=== PATIENT | female | born 1970 | race Caucasian/White ===

== ENCOUNTER 2016-11-22 09:19 | Emergency (ER) | payer BC ==
[2016-11-22 09:35] VITALS: BP 92/56
--- NOTE | 2016-12-05 09:26 | UC ---
Obdulio Stewart Angela, scribed for Pat Alvarez MD on 11/22/16 at 1008 . General HPI - HPI Summary HPI Summary: This pt is a 46 y/o female presenting to [facility] c/o sore throat x3 days. Pt additionally c/o head congestion since last night. She notes swallowing is painful. Pt denies cough, long travel distance, fever, rash. She has not had a flu shot this year yet. Pt states she is not prone to yeast infections. She is allergic to glucosamine. - History of Current Complaint Chief Complaint: UCGeneralIllness Stated Complaint: SORE THROAT Time Seen by Provider: 11/22/16 09:43 Hx Obtained From: Patient Hx Last Menstrual Period: 11/15/16 Onset/Duration: Lasting Days Associated Signs & Symptoms: Negative: Cough, Fever - Allergy/Home Medications Allergies/Adverse Reactions: Allergies Allergy/AdvReac Type Severity Reaction Status Date / Time Glucosamine AdvReac Severe Nausea And Verified 11/22/16 09:32 Vomiting PMH/Surg Hx/FS Hx/Imm Hx Other Endocrine History: DENIES: diabetes Other Cardiovascular History: DENIES: HTN - Surgical History Surgical History: Yes Surgery Procedure, Year, and Place: Left Shoulder - Family History Known Family History: Positive: Hypertension, Diabetes - mother, Other - Mother : breast CA. Father: bone CA - Social History Alcohol Use: Occasionally Alcohol Amount: 2XWEEK Substance Use Type: None Smoking Status (MU): Never Smoked Tobacco Have You Smoked in the Last Year: No Review of Systems Constitutional: Negative Skin: Negative Eyes: Negative ENT: Sore Throat, Sinus Congestion, Other - head congestion Respiratory: Negative Cardiovascular: Negative Gastrointestinal: Negative Genitourinary: Negative Motor: Negative Neurovascular: Negative Musculoskeletal: Negative Is Patient Immunocompromised?: No All Other Systems Reviewed And Are Negative: Yes Physical Exam Triage Information Reviewed: Yes Appearance: Well-Nourished Vital Signs: Initial Vital Signs Temp 97.8 F 11/22/16 09:32 Pulse 69 11/22/16 09:32 Resp 16 11/22/16 09:32 BP 92/56 11/22/16 09:32 Pulse Ox 100 11/22/16 09:32 Vital Signs Reviewed: Yes Eye Exam: Normal ENT: Positive: Nasal congestion - left nostril more inflamed than the right., Other: - Posterior pharynx is erythematous. Uvula is midline. No airway obstruction. There are no sores appreciated. There is redness on soft palate. Respiratory Exam: Normal Respiratory: Positive: Chest non-tender, Lungs clear, Normal breath sounds, No respiratory distress, No accessory muscle use Cardiovascular Exam: Normal Cardiovascular: Positive: RRR, No Murmur, Pulses Normal, Brisk Capillary Refill Abdominal Exam: Normal Abdomen Description: Positive: Nontender, No Organomegaly, Soft Bowel Sounds: Positive: Present Musculoskeletal Exam: Normal Musculoskeletal: Positive: Strength Intact Neurological Exam: Normal - nonfocal, grossly intact Psychological Exam: Normal - conversing easily and appropriately Skin Exam: Normal - no visible or reported rash Course/Dx - Course Course Of Treatment: Rapid strep test is negative for strep throat. Reviewed results, coa, tx pain with pt. Pt declines a work note. Questions as posed answered to the best of my ability. - Differential Dx - Multi-Symptom Provider Diagnoses: uri, sinusitis Discharge - Discharge Plan Condition: Stable Disposition: HOME Prescriptions: Azithromyxin XIANG (NF) [Z-Xiang (Zithromax) 250 mg tabs #6] 2 tab PO .TODAY, THEN 1 DAILY #6 tab Patient Education Materials: Sinusitis (ED) Referrals: Raymon PRUETT,Doc Baltazar [Primary Care Provider] - The documentation as recorded by the Obdulio maloney Angela accurately reflects the service I personally performed and the decisions made by me, Pat Alvarez MD.
== END 2016-11-22 10:35 | disposition home or self-care (01) ==
LOC: UCEAST 09:19
DX: J06.9 Acute upper respiratory infection, unspecified (principal); J32.9 Chronic sinusitis, unspecified; Z88.8 Allergy status to other drugs, medicaments and biological substances
CPT/HCPCS: 87651; 99212; G0463

== ENCOUNTER 2017-03-26 07:51 | Emergency (ER) | payer BC ==
[2017-03-26 08:00] VITALS: BP 121/69
--- NOTE | 2017-03-26 08:28 | UC ---
Head Injury HPI - History Of Current Complaint Chief Complaint: UCHeadache Stated Complaint: HEADACHE NECK PAIN NAUSEA DIZZY Time Seen by Provider: 03/26/17 08:26 Hx Last Menstrual Period: 02/21/17 - Allergies/Home Medications Allergies/Adverse Reactions: Allergies Allergy/AdvReac Type Severity Reaction Status Date / Time Glucosamine AdvReac Severe Nausea And Verified 03/26/17 07:56 Vomiting PMH/Surg Hx/FS Hx/Imm Hx - Surgical History Surgical History: Yes Surgery Procedure, Year, and Place: Left Shoulder - Family History Known Family History: Positive: Hypertension, Diabetes - mother, Other - Mother : breast CA. Father: bone CA - Social History Alcohol Use: Occasionally Alcohol Amount: 2XWEEK Substance Use Type: None Smoking Status (MU): Never Smoked Tobacco Have You Smoked in the Last Year: No Physical Exam Vital Signs: Initial Vital Signs Temp 98 F 03/26/17 07:56 Pulse 76 03/26/17 07:56 Resp 15 03/26/17 07:56 BP 121/69 03/26/17 07:56 Pulse Ox 100 03/26/17 07:56 Discharge - Discharge Plan Referrals: Raymon PRUETT,Doc Baltazar [Primary Care Provider] -
--- NOTE | 2017-03-26 08:42 | UC ---
UC General HPI - HPI Summary HPI Summary: 5 days of head and body aches feels congested like she is getting a cold historically she does not run fevers and she did not get a flu vaccine this year - History of Current Complaint Chief Complaint: UCHeadache Stated Complaint: HEADACHE NECK PAIN NAUSEA DIZZY Time Seen by Provider: 03/26/17 08:26 Hx Obtained From: Patient Hx Last Menstrual Period: 02/21/17 Onset/Duration: Sudden Onset, Lasting Days - 5, Still Present Timing: Constant Onset Severity: Moderate Current Severity: Moderate Pain Location at: body and right side of neck Character: aching - Allergy/Home Medications Allergies/Adverse Reactions: Allergies Allergy/AdvReac Type Severity Reaction Status Date / Time Glucosamine AdvReac Severe Nausea And Verified 03/26/17 07:56 Vomiting PMH/Surg Hx/FS Hx/Imm Hx Previously Healthy: No Psychological History: Depression - Surgical History Surgical History: Yes Surgery Procedure, Year, and Place: Left Shoulder - Family History Known Family History: Positive: Hypertension, Diabetes - mother, Other - Mother : breast CA. Father: bone CA - Social History Occupation: Employed Full-time Lives: With Family Alcohol Use: Occasionally Alcohol Amount: 2XWEEK Substance Use Type: None Smoking Status (MU): Never Smoked Tobacco Have You Smoked in the Last Year: No Review of Systems Constitutional: Fatigue Skin: Negative Eyes: Negative ENT: Negative Respiratory: Negative Cardiovascular: Negative Gastrointestinal: Negative Genitourinary: Negative Motor: Negative Neurovascular: Negative Musculoskeletal: Myalgia Neurological: Headache Psychological: Negative Is Patient Immunocompromised?: No All Other Systems Reviewed And Are Negative: Yes Physical Exam Triage Information Reviewed: Yes Appearance: Well-Appearing, No Pain Distress, Well-Nourished Vital Signs: Initial Vital Signs Temp 98 F 03/26/17 07:56 Pulse 76 03/26/17 07:56 Resp 15 03/26/17 07:56 BP 121/69 03/26/17 07:56 Pulse Ox 100 03/26/17 07:56 Vital Signs Reviewed: Yes Eye Exam: Normal Eyes: Positive: Conjunctiva Clear ENT Exam: Normal ENT: Positive: Normal ENT inspection, Hearing grossly normal, Pharynx normal, TMs normal, Uvula midline. Negative: Nasal congestion, Nasal drainage, Tonsillar swelling, Tonsillar exudate, Trismus, Muffled voice, Hoarse voice, Dental tenderness, Sinus tenderness Dental Exam: Normal Neck exam: Normal Neck: Positive: Supple, Nontender, No Lymphadenopathy, Other: - chin to chest with no pain and ease Respiratory Exam: Normal Respiratory: Positive: Chest non-tender, Lungs clear, Normal breath sounds, No respiratory distress, No accessory muscle use Cardiovascular Exam: Normal Cardiovascular: Positive: RRR, No Murmur, Pulses Normal, Brisk Capillary Refill Musculoskeletal Exam: Normal Musculoskeletal: Positive: Strength Intact, ROM Intact, No Edema Neurological Exam: Normal Neurological: Positive: Alert, Muscle Tone Normal Psychological Exam: Normal Skin Exam: Normal Diagnostics - Laboratory Diagnostic Studies Completed/Ordered: Influenza A/B (-) Course/Dx - Course Course Of Treatment: Rest increase fluids, tylenol ibuprofen - Differential Dx - Multi-Symptom Provider Diagnoses: Viral illness Discharge - Discharge Plan Condition: Stable Disposition: HOME Patient Education Materials: Viral Syndrome (ED) Referrals: Raymon PRUETT,Doc Baltazar [Primary Care Provider] - 3 Days
== END 2017-03-26 09:20 | disposition home or self-care (01) ==
LOC: UCEAST 07:51
DX: B34.9 Viral infection, unspecified (principal); F32.9 Major depressive disorder, single episode, unspecified; Z88.8 Allergy status to other drugs, medicaments and biological substances
CPT/HCPCS: 87502; 99211; G0463

== ENCOUNTER 2018-06-08 10:05 | Emergency (ER) | payer BC ==
[2018-06-08 10:16] VITALS: BP 117/79
--- NOTE | 2018-06-08 10:21 | UC ---
Skin Complaint HPI - HPI Summary HPI Summary: 47 yo female presents with rashes. She tells me that she has noticed some red mildly itchy rings to her left lower abdomen that have been there for months without changing. Today she was getting a massage and the therapist told her that she had a large similar ring behind her right knee and suggested that pt be evaluated. Pt has never noticed the rash behind her knee. Has never applied any creams or lotions. No new medications, detergents, or soaps. - History of Current Complaint Chief Complaint: UCSkin Stated Complaint: SKIN COMPLAINT Hx Obtained From: Patient Hx Last Menstrual Period: 05/04/18 Onset/Duration: Gradual Onset Current Severity: None Pain Intensity: 0 Pain Scale Used: 0-10 Numeric - Allergy/Home Medications Allergies/Adverse Reactions: Allergies Allergy/AdvReac Type Severity Reaction Status Date / Time glucosamine Allergy Hives Verified 06/08/18 10:17 MS Glucosamine [Glucosamine] AdvReac Severe Nausea And Verified 03/26/17 07:56 Vomiting PMH/Surg Hx/FS Hx/Imm Hx Psychological History: Anxiety, Depression - Surgical History Surgical History: Yes Surgery Procedure, Year, and Place: Left Shoulder - Family History Known Family History: Positive: Hypertension, Diabetes - mother, Other - Mother : breast CA. Father: bone CA - Social History Occupation: Employed Full-time Lives: With Family Alcohol Use: Occasionally Alcohol Amount: 2XWEEK Substance Use Type: None Smoking Status (MU): Never Smoked Tobacco Have You Smoked in the Last Year: No Review of Systems All Other Systems Reviewed And Are Negative: Yes Constitutional: Positive: Negative Skin: Positive: Rash Respiratory: Positive: Negative Cardiovascular: Positive: Negative Gastrointestinal: Positive: Negative Genitourinary: Positive: Negative Neurological: Positive: Negative Psychological: Positive: Negative Physical Exam - Summary Physical Exam Summary: GENERAL: NAD. WDWN. No pain distress. SKIN: Left lower abdomen and waist line with three 1.0cm hypermigementated circles with scaly borders. Right posterior knee with similar appearing area 6.0cm in size. No open wound, drainage, streaking, edema, or warmth. NECK: Supple. Nontender. No lymphadenopathy. CHEST: No accessory muscle use. Breathing comfortably and in no distress. CV: Pulses intact. Cap refill <2seconds NEURO: Alert. PSYCH: Age appropriate behavior. Triage Information Reviewed: Yes Vital Signs: Initial Vital Signs Temp 98.6 F 06/08/18 10:14 Pulse 92 06/08/18 10:14 Resp 18 06/08/18 10:14 BP 117/79 06/08/18 10:14 Pulse Ox 99 06/08/18 10:14 Vital Signs Reviewed: Yes Course/Dx - Course Course Of Treatment: Suspect tinea infection. Given the multiple locations of infection, will treat with po terbinafine. - Diagnoses Provider Diagnosis: Tinea versicolor Discharge - Sign-Out/Discharge Documenting (check all that apply): Patient Departure All imaging exams completed and their final reports reviewed: No Studies - Discharge Plan Condition: Stable Disposition: HOME Prescriptions: Clotrimazole 1% CREAM* [Clotrimazole 1%*] 1 applic TOPICAL BID #1 tube Terbinafine HCl 250 mg PO DAILY #10 tablet Patient Education Materials: Tinea Versicolor (ED) Referrals: Raymon PRUETT,Doc Baltazar [Primary Care Provider] - Elias Carr MD [Medical Doctor] - If Needed Additional Instructions: If you develop a fever, shortness of breath, chest pain, new or worsening symptoms - please call your PCP or go to the ED. If your symptoms do not improve - please follow up with Dermatology at the number below - Billing Disposition and Condition Condition: STABLE Disposition: Home
== END 2018-06-08 10:33 | disposition home or self-care (01) ==
LOC: UCEAST 10:05
DX: B36.0 Pityriasis versicolor (principal); Z88.8 Allergy status to other drugs, medicaments and biological substances
CPT/HCPCS: 99212; G0463